=== PATIENT | female | born 1995 | race Caucasian/White ===

== ENCOUNTER → 2022-04-05 13:39 | Outpatient (CLI) | payer OTHER, MEDICAID, SELFPAY ==
[2022-04-05 20:28] LABS: Hematocrit 38.1 % (36-46); Hemoglobin 12.8 g/dL (12.0-16.0); Mean Corpuscular HGB Conc 33.5 % (30-36); Mean Corpuscular Hemoglobin 30.3 PG (26-34); Mean Corpuscular Volume 90.5 fL (80-100); Platelet Count 219 X10^3/uL (150-400); Red Blood Cell Count 4.21 X10^6/uL (4.0-5.2); Red Cell Distribution Width 12.5 % (11.6-14.8); White Blood Cell Count 5.7 X10^3/uL (4.5-11.0)
[2022-04-05 20:37] LABS: Alanine Aminotransferase 19 IU/L (<35); Albumin 4.4 g/dL (3.5-5.0); Albumin Globulin Ratio 1.6 (1.0-2.8); Alkaline Phosphatase 93 U/L (38-126); Aspartate Aminotransferase 25 IU/L (14-36); BUN Creatinine Ratio 16.5 (6-22); Bilirubin Total 0.5 mg/dL (0.2-1.3); Blood Urea Nitrogen 16 mg/dL (7-17); Calcium 9.5 mg/dL (8.4-10.2); Carbon Dioxide 30 mmol/L (22-32); Chloride 100 mmol/L (98-107); Cholesterol 150 mg/dL (140-199); Estimated Glomerular Filt Rate > 60 mL/min (>60); Globulin 2.8 g/dL (1.7-4.1); Glucose 80 mg/dL (70-100); HDL Cholesterol 92 mg/dL (40-60); HEMOLYSIS < 15 (0-50); LDL Cholesterol Calculated 48 mg/dL (<100); Potassium 4.1 mmol/L (3.4-5.1); Sodium 140 mmol/L (137-145); Total Protein 7.2 g/dL (6.3-8.2); Triglycerides 52 mg/dL (35-150)
[2022-04-05 20:45] LABS: Free T3, Triiodothyronine Free 4.47 pg/mL (2.77-5.27); Free T4, Direct Thyroxine 1.71 ng/dL (0.78-2.19)
[2022-04-05 20:49] LABS: Vitamin D 25 Hydroxy (D3) 80.4 ng/mL (30.0-100.0)
[2022-04-05 21:01] LABS: Thyroid Stimulating Hormone < 0.015 uIU/mL (0.47-4.68)
[2022-04-05 21:38] LABS: Folate > 20.0 ng/mL (2.76-20.0); Vitamin B12 616 pg/mL (239-931)
== END ==
DX: Z00.00 Encounter for general adult medical examination without abnormal findings (principal); Z13.220 Encounter for screening for lipoid disorders; Z13.39 Encounter for screening examination for other mental health and behavioral disorders; E03.9 Hypothyroidism, unspecified
CPT/HCPCS: 80053; 80061; 82306; 82607; 82746; 84439; 84443; 84481; 85027

== ENCOUNTER → 2023-09-26 09:13 | Outpatient (CLI) | payer OTHER, MEDICAID, SELFPAY ==
[2023-09-26 21:18] LABS: Add Manual Diff / Slide Review NO; Basophils Absolute Auto 100 /uL (0-100); Basophils Percent Auto 0.9 % (0-2); Eosinophils Absolute Auto 100 /uL (0-450); Eosinophils Percent Auto 1.4 % (2-4); Hematocrit 35.7 % (36-46); Hemoglobin 12.1 g/dL (12.0-16.0); Lymphocytes Absolute Auto 1900 /uL (1100-4500); Lymphocytes Percent Auto 24.7 % (25-40); Mean Corpuscular HGB Conc 33.8 % (30-36); Mean Corpuscular Hemoglobin 30.7 PG (26-34); Monocytes Absolute Auto 400 /uL (0-900); Monocytes Percent Auto 5.3 % (3-14); Neutrophils Absolute Auto 5100 /uL (1500-7000); Neutrophils Percent Auto 67.7 % (50-75); Platelet Count 244 X10^3/uL (150-400); Red Blood Cell Count 3.92 X10^6/uL (4.0-5.2); Red Cell Distribution Width 14.7 % (11.6-14.8); White Blood Cell Count 7.6 X10^3/uL (4.5-11.0)
[2023-09-26 22:17] LABS: Alanine Aminotransferase 13 IU/L (<35); Albumin 3.7 g/dL (3.5-5.0); Albumin Globulin Ratio 1.3 (1.0-2.8); Alkaline Phosphatase 60 U/L (38-126); Aspartate Aminotransferase 22 IU/L (14-36); BUN Creatinine Ratio 16.7 (6-22); Bilirubin Total 0.4 mg/dL (0.2-1.3); Blood Urea Nitrogen 8 mg/dL (7-17); Calcium 9.2 mg/dL (8.4-10.2); Carbon Dioxide 24 mmol/L (22-32); Chloride 107 mmol/L (98-107); Estimated Glomerular Filt Rate > 60 mL/min (>60); Globulin 2.9 g/dL (1.7-4.1); Glucose 71 mg/dL (70-100); HEMOLYSIS < 15 (0-50); Sodium 136 mmol/L (137-145); Total Protein 6.6 g/dL (6.3-8.2)
[2023-09-26 23:04] LABS: TSH w/ Reflex to FT4 1.96 uIU/mL (0.47-4.68)
[2023-09-28 12:37] LABS: Ferritin 36 ng/mL (6-137)
[2023-09-28 13:07] LABS: Vitamin B12 476 pg/mL (239-931)
[2023-09-29 05:58] LABS: Folate > 20.0 ng/mL (2.76-20.0)
== END ==
PROVIDERS: PCP Physician Assistant; Visit Provider Physician Assistant
DX: R79.89 Other specified abnormal findings of blood chemistry (principal); Z34.90 Encounter for supervision of normal pregnancy, unspecified, unspecified trimester; D64.9 Anemia, unspecified; Z34.92 Encounter for supervision of normal pregnancy, unspecified, second trimester
CPT/HCPCS: 80053; 82607; 82728; 82746; 84443; 85025

== ENCOUNTER → 2023-10-20 09:42 | Outpatient (CLI) | payer OTHER, MEDICAID, SELFPAY ==
--- NOTE | 2023-10-20 09:44 | DI.US.S_ITS ---
LIMITED ULTRASOUND OF LEFT BREAST AND AXILLA: 10/20/2023 CLINICAL: Palpable left breast lump x 3 weeks, 16 wks , currently . Comparison is made to exams dated: 11/29/2019 ultrasound, 03/07/2018 ultrasound - [facility], and 02/23/2017 ultrasound - [facility]. Real-time ultrasound of the left breast 11 o'clock, and axilla regions was performed. Nunez scale images of the real-time examination were reviewed. No significant abnormalities were seen sonographically in the left breast. IMPRESSION: NEGATIVE There is no sonographic evidence of malignancy. There is no abnormality seen in the left breast to correspond with the area of clinical concern at 11 o'clock, however, clinical correlation and clinical followup are recommended. If new or enlarging symptoms are noted, recommend imaging re-evaluation. This exam was interpreted at Station ID: [id number]. Electronically Signed By: Xavi Eldridge M.D. lc/:10/20/2023 10:21:24 letter sent: Clinical Evaluation Ultrasound BI-RADS: 1 Negative
== END ==
PROVIDERS: PCP Physician Assistant; Referring Provider Physician Assistant; Visit Provider Physician Assistant
DX: Z34.90 Encounter for supervision of normal pregnancy, unspecified, unspecified trimester (principal); N63.20 Unspecified lump in the left breast, unspecified quadrant; Z39.1 Encounter for care and examination of lactating mother
CPT/HCPCS: 76642

== ENCOUNTER → 2025-05-28 10:01 | Outpatient (CLI) | payer OTHER, MEDICAID, SELFPAY ==
[2025-05-28 19:14] LABS: Add Manual Diff / Slide Review NO; Hematocrit 37.6 % (36-46); Hemoglobin 12.7 g/dL (12.0-16.0); Lymphocytes Absolute Auto 1900 /uL (1100-4500); Mean Corpuscular HGB Conc 33.8 % (30-36); Mean Corpuscular Hemoglobin 29.9 PG (26-34); Mean Corpuscular Volume 88.4 fL (80-100); Platelet Count 263 X10^3/uL (150-400)
[2025-05-28 19:26] LABS: Alanine Aminotransferase 19 IU/L (<35); Albumin 4.6 g/dL (3.5-5.0); Albumin Globulin Ratio 1.7 (1.0-2.8); Alkaline Phosphatase 76 U/L (38-126); Blood Urea Nitrogen 12 mg/dL (7-17); Calcium 9.2 mg/dL (8.4-10.2); Carbon Dioxide 27 mmol/L (22-32); Chloride 103 mmol/L (98-107); Estimated Glomerular Filt Rate > 60 mL/min (>60); Globulin 2.7 g/dL (1.7-4.1); Glucose 81 mg/dL (70-99); HEMOLYSIS < 15 (0-50); Potassium 4.2 mmol/L (3.4-5.1); Sodium 138 mmol/L (137-145); Total Protein 7.3 g/dL (6.3-8.2)
[2025-05-28 19:37] LABS: Vitamin D 25 Hydroxy (D3) 57.8 ng/mL (30.0-100.0)
[2025-05-28 19:40] LABS: Free T4, Direct Thyroxine 1.06 ng/dL (0.78-2.19)
[2025-05-28 19:54] LABS: Thyroid Stimulating Hormone 3.44 uIU/mL (0.47-4.68)
[2025-05-28 19:57] LABS: Ferritin 45 ng/mL (6-137)
[2025-05-28 20:13] LABS: Vitamin B12 639 pg/mL (239-931)
== END ==
PROVIDERS: Nurse Practitioner Adult Health; PCP Family Medicine; Visit Provider Physician Assistant
DX: Z39.1 Encounter for care and examination of lactating mother (principal); K14.1 Geographic tongue; D64.9 Anemia, unspecified; R79.89 Other specified abnormal findings of blood chemistry; R45.86 Emotional lability; F53.0 Postpartum depression
CPT/HCPCS: 80053; 82306; 82607; 82728; 84439; 84443; 85025